=== PATIENT | female | born 1980 | race Two or more races ===

== ENCOUNTER 2017-07-12 20:26 | Emergency (ER) | payer MEDICAID ==
[~2017-07-12] VITALS: Ht 167.6 cm; Wt 68.0 kg
[2017-07-12 20:41] LABS: BASOPHILS % (AUTO) 0.9 % (0.0-2.0); EOSINOPHILS % (AUTO) 0.7 % (0.0-3.0); HEMATOCRIT 39.6 % (37.0-47.0); HEMOGLOBIN 13.1 G/DL (12.0-16.0); LYMPHOCYTES % (AUTO) 44.6 % (20.0-45.0); MEAN CORPUSCULAR VOLUME 88 FL (80-99); MONOCYTES % (AUTO) 7.9 % (1.0-10.0); PLATELET COUNT 359 K/UL (150-450); RED BLOOD COUNT 4.48 M/UL (4.20-5.40); RED CELL DISTRIBUTION WIDTH 12.2 % (11.6-14.8); WHITE BLOOD COUNT 12.5 K/UL (4.8-10.8)
--- NOTE | 2017-07-12 20:42 | Emergency Room Report ---
History of Present Illness General Chief Complaint: Abdominal Pain Source: Patient Present Illness HPI 36-year-old female with no sig pmhx p/w epigastric abd pain nausea and vomiting for 3 days localized to epigastric area, non radiating, burning in nature, intermittent. No relieving or exacerbating factors. Complains of multiple episodes of nausea and vomiting nonbloody. Denies black or bloody stools. Denies fever, chills. No abdominal surgeries except for No hx of endoscopies/colonoscopies. Pt states despite pain she has still been able to eat/drink normally states she is under a lot of stress at home Allergies: Coded Allergies: No Known Allergies (Unverified , 07/12/17) Patient History Past Medical History: see triage record Past Surgical History: none Pertinent Family History: none Last Menstrual Period: 06/18/17 Now: No Reviewed Nursing Documentation: PMH: Agreed; PSxH: Agreed Review of Systems All Other Systems: negative except mentioned in HPI Physical Exam Vital Signs Date Time Temp Pulse Resp B/P (MAP) Pulse Ox O2 Delivery O2 Flow Rate FiO2 07/12/17 20:34 98.0 61 14 100 Room Air 98.1 Sp02 EP Interpretation: reviewed, normal General Appearance: alert, GCS 15, non-toxic, moderate distress Head: normocephalic, atraumatic Eyes: bilateral eye normal inspection, bilateral eye PERRL, bilateral eye EOMI ENT: normal ENT inspection, normal pharynx, normal voice, moist mucus membranes Neck: normal inspection, full range of motion, supple Respiratory: normal inspection, lungs clear, normal breath sounds, no respiratory distress, no retraction, no wheezing, speaking full sentences, chest symmetrical Cardiovascular #1: normal inspection, regular rate, rhythm, no edema, normal capillary refill Cardiovascular #2: 2+ radial (R), 2+ radial (L) Gastrointestinal: other - Epigastric tenderness, no guarding or rigidity, no focal right lower quadrant or left lower quadrant tenderness, Izquierdo's sign is negative Musculoskeletal: normal inspection, back normal, normal range of motion, non- tender Neurologic: normal inspection, alert, oriented x3, responsive, motor strength/ tone normal, sensory intact, normal gait, speech normal Psychiatric: normal inspection, judgement/insight normal, memory normal Skin: normal inspection, normal color, no rash, warm/dry, well hydrated, normal turgor Medical Decision Making Diagnostic Impression: Primary Impression: Epigastric abdominal pain Additional Impression: UTI (urinary tract infection) ER Course 36-year-old female with epigastric abdominal pain Differential Diagnosis: Gastritis, gastroenteritis, peptic ulcer disease, cholecystitis, appendicitis, UTI/pyelo At this time abdomen is soft nontender with the exception of epigastric region, not likely to have acute intra-abdominal surgical pathology, will hold CT for now. Plan: Basic labs, ua pain control, IVF CXR ER course: Patient states that she is feeling much better, with the medications Repeat abdominal exam is soft nontender +UTI found Disposition: Patient will be discharged home with keflex Strict return precautions discussed with patient such as severe worsening abdominal pain, intractable nausea or vomiting Follow with PCP in one week Please note that this Emergency Department Report was dictated using [employer] scientist technology software, occasionally this can lead to erroneous entry secondary to interpretation by the dictation equipment EKG Diagnostic Results EP Interpretation: Yes Rate: normal Rhythm: NSR ST Segments: No acute changes ASA given to patient: No Rhythm Strip EP Interpretation: Yes Rate: 70 Rhythm: NSR, no PVCs, no ectopy Chest X-ray CXR: Ordered: Yes 1 view Indication: Pain EP interpretation: Yes Interpretation: No consolidation, no effusion, no PTX, no acute cardiopulmonary disease, no free air under diaphragm Impression: No acute disease Electronically signed by Helen Salas MD Laboratory Tests Test 07/12/17 20:21 07/12/17 20:31 Human Chorionic Gonadotropin, Quant Pending White Blood Count 12.5 K/UL (4.8-10.8) H Red Blood Count 4.48 M/UL (4.20-5.40) Hemoglobin 13.1 G/DL (12.0-16.0) Hematocrit 39.6 % (37.0-47.0) Mean Corpuscular Volume 88 FL (80-99) Mean Corpuscular Hemoglobin 29.2 PG (27.0-31.0) Mean Corpuscular Hemoglobin Concent 33.1 G/DL (32.0-36.0) Red Cell Distribution Width 12.2 % (11.6-14.8) Platelet Count 359 K/UL (150-450) Mean Platelet Volume 6.9 FL (6.5-10.1) Neutrophils (%) (Auto) 46.0 % (45.0-75.0) Lymphocytes (%) (Auto) 44.6 % (20.0-45.0) Monocytes (%) (Auto) 7.9 % (1.0-10.0) Eosinophils (%) (Auto) 0.7 % (0.0-3.0) Basophils (%) (Auto) 0.9 % (0.0-2.0) Sodium Level 138 MMOL/L (136-145) Potassium Level 3.5 MMOL/L (3.5-5.1) Chloride Level 105 MMOL/L (98-107) Carbon Dioxide Level 23 MMOL/L (21-32) Anion Gap 10 mmol/L (5-15) Blood Urea Nitrogen 7 mg/dL (7-18) Creatinine 0.7 MG/DL (0.55-1.30) Estimate Glomerular Filtration Rate > 60 mL/min (>60) Glucose Level 104 MG/DL (74-106) Calcium Level 8.4 MG/DL (8.5-10.1) L Total Bilirubin 0.3 MG/DL (0.2-1.0) Aspartate Amino Transferase (AST) 18 U/L (15-37) Alanine Aminotransferase (ALT) 17 U/L (12-78) Alkaline Phosphatase 59 U/L (46-116) Total Protein 7.3 G/DL (6.4-8.2) Albumin 3.4 G/DL (3.4-5.0) Globulin 3.9 g/dL Albumin/Globulin Ratio 0.9 (1.0-2.7) L Lipase 150 U/L (73-393) Last Vital Signs Date Time Temp Pulse Resp B/P (MAP) Pulse Ox O2 Delivery O2 Flow Rate FiO2 07/12/17 20:34 98.0 61 14 11/97 100 Room Air 98.1 Disposition: HOME, SELF-CARE Condition: Improved Scripts Cephalexin* (KEFLEX*) 500 Mg Capsule 500 MG ORAL TID, #21 CAP 0 Refills Prov: BALDOMERO LEONE M.D. 07/12/17 Famotidine (PEPCID) 40 Mg Tablet 40 MG PO DAILY, #7 TAB 0 Refills Prov: Helen Salas M.D. 07/12/17 Helen Salas M.D. Jul 12, 2017 20:41
[2017-07-12] MEDS ORDERED: Dicyclomine HCl 10mg/5ml oral soln ORAL ONE (20:45)
[2017-07-12] MEDS ORDERED: Lidocaine 2% Visc 15ml soln ORAL ONE (20:45)
[2017-07-12] MEDS ORDERED: Mylanta II UD 30ml ORAL ONE (20:45)
[2017-07-12] MEDS ORDERED: Morphine Sulfate 4mg/ml Inj IVP ONE (20:45)
[2017-07-12 20:50] LABS: ANION GAP 10 mmol/L (5-15); BLOOD UREA NITROGEN 7 mg/dL (7-18); CALCIUM 8.4 MG/DL (8.5-10.1); CARBON DIOXIDE 23 MMOL/L (21-32); CHLORIDE 105 MMOL/L (98-107); CREATININE 0.7 MG/DL (0.55-1.30); POTASSIUM 3.5 MMOL/L (3.5-5.1); SODIUM 138 MMOL/L (136-145)
[2017-07-12] MEDS ORDERED: PEPCID40 MG PO (20:53)
[2017-07-12 20:55] LABS: ALANINE AMINOTRANSFERASE 17 U/L (12-78); ALBUMIN 3.4 G/DL (3.4-5.0); ALBUMIN/GLOBULIN RATIO 0.9 (1.0-2.7); ALKALINE PHOSPHATASE 59 U/L (46-116); ASPARTATE AMINO TRANSFERASE 18 U/L (15-37); BILIRUBIN,TOTAL 0.3 MG/DL (0.2-1.0)
[2017-07-12 21:13] VITALS: BP 98/50
[2017-07-12 21:32] LABS: APPEARANCE,URINE CLOUDY; BILIRUBIN, URINE NEGATIVE (NEGATIVE); COLOR,URINE PALE YELLOW; GLUCOSE, URINE (UA) NEGATIVE (NEGATIVE); KETONES,URINE NEGATIVE (NEGATIVE); LEUKOCYTE ESTERASE ,URINE 3+ (NEGATIVE); NITRITE,URINE NEGATIVE (NEGATIVE); PH,URINE 5 (4.5-8.0); PROTEIN,URINE NEGATIVE (NEGATIVE); UROBILINOGEN,URINE NORMAL MG/DL (0.0-1.0)
[2017-07-12] MEDS ORDERED: KEFLEX500 MG ORAL (21:54)
[2017-07-12] MEDS ORDERED: cefTRIAXone 1 GM in NS 55 ML IVPB ONE (22:00)
[2017-07-12 22:22] VITALS: BP 99/56
[2017-07-12 22:35] VITALS: BP 99/56
[2017-07-13] MEDS ORDERED: HYDROCODON-ACE1 EA15 ORAL (04:30)
--- NOTE | 2017-07-13 09:52 | Diagnostic Imaging Report ---
Indication: Chest pain Comparison: None A single view chest radiograph was obtained. Findings: Cardiomediastinal appearance is within normal limits for age. Pulmonary vascularity is appropriate. The diaphragmatic contour is smooth and costophrenic angles are sharp. No pleural effusions are identified. The bones are unremarkable. Impression: No acute findings
== END 2017-07-12 22:35 | disposition home or self-care (01) ==
LOC: EMR 20:35
DX: N39.0 Urinary tract infection, site not specified (principal)
CPT/HCPCS: 36415; 71045; 80053; 81003; 81025; 83690; 84702; 85025; 86850; 86900; 86901; 87086; 93005; 96374; 96375; 99284; J0696; J2270; J2405; S0028

== ENCOUNTER 2017-07-13 00:55 | Emergency (ER) | payer MEDICAID ==
[~2017-07-13] VITALS: Ht 167.6 cm; Wt 68.0 kg
[~2017-07-13 00:55] MED LIST: KEFLEX500 MG ORAL; PEPCID40 MG PO
[2017-07-13] MEDS ORDERED: HYDROmorphone 1mg/ml Carpuject IVP ONE (01:15)
[2017-07-13 01:20] VITALS: BP 100/58
[2017-07-13 02:20] VITALS: BP 117/72
[2017-07-13 02:26] LABS: ANION GAP 7 mmol/L (5-15); BLOOD UREA NITROGEN 7 mg/dL (7-18); CALCIUM 7.7 MG/DL (8.5-10.1); CARBON DIOXIDE 23 MMOL/L (21-32); CHLORIDE 106 MMOL/L (98-107); CREATININE 0.6 MG/DL (0.55-1.30); POTASSIUM 5.2 MMOL/L (3.5-5.1); SODIUM 136 MMOL/L (136-145)
[2017-07-13 02:32] LABS: ALANINE AMINOTRANSFERASE 74 U/L (12-78); ALBUMIN/GLOBULIN RATIO 0.8 (1.0-2.7); ALKALINE PHOSPHATASE 59 U/L (46-116); ASPARTATE AMINO TRANSFERASE 112 U/L (15-37); BILIRUBIN,TOTAL 0.5 MG/DL (0.2-1.0)
[2017-07-13] MEDS ORDERED: Ketorolac 30mg Inj IV ONE (03:00)
[2017-07-13 03:20] VITALS: BP 118/70
[2017-07-13 04:20] VITALS: BP 120/71
[2017-07-13] MEDS ORDERED: HYDROCODON-ACE1 EA15 ORAL (04:30)
--- NOTE | 2017-07-13 04:31 | Emergency Room Report ---
History of Present Illness General Chief Complaint: Abdominal Pain Source: Patient, Medical Record Present Illness HPI Is a 36-year-old female who has no past medical history. She was just discharged from the ER for abdominal pain and UTI. She came back few hours later complaining of epigastric pain and radiate to the right shoulder area. Pain is 10 out of 10. She has nausea and vomiting. Never had this problem before. Worse with eating. Denies any other complaint. Allergies: Coded Allergies: No Known Allergies (Unverified , 07/12/17) Patient History Past Medical History: see triage record, old chart reviewed Past Surgical History: other Pertinent Family History: none Social History: Denies: smoking Last Menstrual Period: 06/18/17 Now: No Immunizations: other Reviewed Nursing Documentation: PMH: Agreed; PSxH: Agreed Nursing Documentation-PMH Past Medical History: No History, Except For Hx Neurological Problems: No - Review of Systems Eye: Denies: eye pain, blurred vision ENT: Denies: ear pain, nose congestion, throat swelling Respiratory: Denies: cough, shortness of breath Cardiovascular: Denies: chest pain, palpitations Gastrointestinal: Reports: abdominal pain, nausea, vomiting; Denies: diarrhea Musculoskeletal: Denies: back pain, joint pain Skin: Denies: rash Neurological: Denies: headache, numbness Endocrine: Denies: increased thirst, increased urine Hematologic/Lymphatic: Denies: easy bruising All Other Systems: negative except mentioned in HPI Physical Exam Vital Signs Date Time Temp Pulse Resp B/P (MAP) Pulse Ox O2 Delivery O2 Flow Rate FiO2 07/13/17 01:03 98.2 60 14 100/58 100 Room Air 98.2 vitals ovidio Sp02 EP Interpretation: reviewed, normal General Appearance: well appearing, no apparent distress, alert Head: normocephalic, atraumatic Eyes: bilateral eye PERRL, bilateral eye EOMI ENT: hearing grossly normal, normal pharynx Neck: full range of motion, supple, no meningismus Respiratory: chest non-tender, lungs clear, normal breath sounds Cardiovascular #1: regular rate, rhythm, no murmur Gastrointestinal: normal bowel sounds, no mass, no organomegaly, no bruit, non- distended, tenderness - right upper qudrant pain Musculoskeletal: back normal, gait/station normal, normal range of motion Psychiatric: mood/affect normal Skin: warm/dry Medical Decision Making Diagnostic Impression: Primary Impression: Cholelithiasis Qualified Codes: K80.20 - Calculus of gallbladder without cholecystitis without obstruction Additional Impression: Biliary colic ER Course patient presents with abdominal painand has gallstone causing her symptoms. No evidence of obstruction or infection. pain resolved. We'll dc home Lab Results Impression labs normal CT/MRI/US Diagnostic Results CT/MRI/US Diagnostic Results : Imaging Test Ordered: CT abdomen and pelvis Impression read by radiologist. Gallstone. Last Vital Signs Date Time Temp Pulse Resp B/P (MAP) Pulse Ox O2 Delivery O2 Flow Rate FiO2 07/13/17 03:20 98.2 62 15 118/70 99 Room Air 98.2 Status: improved Disposition: HOME, SELF-CARE Condition: Stable Scripts Hydrocodone/Acetaminophen 5-325* (HYDROCODONE/ACETAMINOPHEN 5-325*) 1 Each Tablet 1 TAB ORAL Q6H PRN for For Pain, #30 TAB 0 Refills Prov: BALDOMERO LEONE M.D. 07/13/17 Referrals: NOT CHOSEN [facility]/,REFERRING (PCP) Additional Instructions: Follow-up with your DrAron in 2-3 days. If not better may knee referred to see surgeon. Return if worse. BALDOMERO LEONE M.D. Jul 13, 2017 04:31
[2017-07-13 04:45] VITALS: BP 120/71
--- NOTE | 2017-07-13 08:44 | Diagnostic Imaging Report ---
Indication: Abdominal pain Technique: Continuous helical transaxial imaging of the abdomen and pelvis was obtained from the lung bases to the pubic symphysis during intravenous contrast administration. Coronal 2-D reformats were also obtained. Study obtained in a Siemens sensation [address] Automatic Exposure Control was utilized. Total Dose length Product (DLP): 739.[address] Dose Index Volume (CTDIvol): 14.79 mGy Comparison: None Findings: Bilateral breast implants noted. Lung bases are clear. Normal appendix noted. There is a tiny focus of nodularity within the gallbladder which could be a gallbladder polyp or small stone. Ultrasound could be helpful for further evaluation if needed. Small amount of free fluid noted in the pelvis. Uterus demonstrated. No evidence of bowel obstruction or free air. No hydronephrosis or renal stones identified. The liver, spleen, gallbladder and pancreas appear normal. IMPRESSION: No acute findings. Appreciated. Normal appendix Possible small gallstone versus gallbladder polyp. Ultrasound could be done as warranted clinically. Bilateral breast implants The CT scanner at [facility] is accredited by the [employer] and the scans are performed using dose optimization techniques as appropriate to a performed exam including Automatic Exposure control.
== END 2017-07-13 04:45 | disposition home or self-care (01) ==
LOC: EMR 01:05
DX: K80.70 Calculus of gallbladder and bile duct without cholecystitis without obstruction (principal); Z98.82 Breast implant status
CPT/HCPCS: 36415; 74177; 80053; 96374; 96375; 99284; J1170; J1885; J2405; Q9967